=== PATIENT | female | born 1940 | race Caucasian/White ===

== ENCOUNTER 2019-06-16 13:46 | Emergency (ER) | payer MEDICARE, BC ==
[~2019-06-16] VITALS: Ht 157.5 cm; Wt 64.9 kg
[~2019-06-16 13:46] MED LIST: PHEN-705 PO
[2019-06-16 14:05] VITALS: BP 202/113
--- NOTE | 2019-06-16 14:21 | NUR ---
DR BUNN AT BEDSIDE FOR EVAL.
[2019-06-16] MEDS ORDERED: ACETAMINOPHEN ES 500 MG TABLET ONE (14:27)
--- NOTE | 2019-06-16 14:29 | NUR ---
RADIOLOGY AT BEDSIDE FOR L KNEE XRAY.
[2019-06-16] MEDS ORDERED: ACETAMINOPHEN ES 500 MG TABLET PO ONE (14:30)
== END 2019-06-16 15:22 | disposition home or self-care (01) ==
LOC: ER 13:55
DX: S86.812A Strain of other muscle(s) and tendon(s) at lower leg level, left leg, initial encounter (principal); Z60.2 Problems related to living alone; W18.39XA Other fall on same level, initial encounter; Y93.89 Activity, other specified; Y92.89 Other specified places as the place of occurrence of the external cause; Y99.8 Other external cause status
CPT/HCPCS: 73564-TC

== ENCOUNTER 2019-08-05 09:55 | Outpatient (CLI) | payer MEDICARE, BC | END 2019-08-05 23:59 | disposition home or self-care (01) | LOC: CARD 09:55 | PROVIDERS: ATTEND Internal Medicine Interventional Cardiology | DX: M51.36 Other intervertebral disc degeneration, lumbar region (principal); M48.07 Spinal stenosis, lumbosacral region; M43.17 Spondylolisthesis, lumbosacral region; E88.2 Lipomatosis, not elsewhere classified; M41.86 Other forms of scoliosis, lumbar region; M12.88 Other specific arthropathies, not elsewhere classified, other specified site; M89.38 Hypertrophy of bone, other site; I70.292 Other atherosclerosis of native arteries of extremities, left leg | CPT/HCPCS: 72131-TC ==

== ENCOUNTER 2021-08-13 10:03 | Outpatient (CLI) | payer MEDICARE, BC ==
[2021-08-13 11:49] LABS: BASOPHILS % (AUTO) 0.7 % (0.0-2.0); EOSINOPHILS % (AUTO) 1.3 % (0.0-6.0); LYMPHOCYTES # (AUTO) 0.8 K/uL (0.8-4.8); LYMPHOCYTES % (AUTO) 13.5 % (20.0-44.0); MEAN CORPUSCULAR HGB CONC 33 g/dl (31.0-36.0); MEAN CORPUSCULAR VOLUME 98 fL (82-100); MONOCYTES # (AUTO) 0.6 K/uL (0.1-1.30); NEUTROPHILS # (AUTO) 4.3 K/uL (1.8-8.9); NEUTROPHILS % (AUTO) 73.5 % (43.0-81.0); PLATELET COUNT (AUTO) 275 K/uL (150-450); WHITE BLOOD COUNT (AUTO) 5.8 K/uL (4.3-11.0)
[2021-08-13 12:47] LABS: RED BLOOD CELL COUNT(AUTO) 1.94 MIL/uL (4.0-5.2)
[2021-08-13 12:48] LABS: HEMATOCRIT 19 % (33-45); HEMOGLOBIN 6.4 g/dL (11.5-14.8)
[2021-08-13 14:46] LABS: EOSINOPHILS % (MANUAL) 2 % (0-4); LYMPHOCYTES % (MANUAL) 15 % (16-48); MONOCYTES % (MANUAL) 8 % (0-11.0); NEUTROPHILS % (MANUAL) 75 (42-76)
== END 2021-08-13 23:59 | disposition home or self-care (01) ==
LOC: LAB 10:03
PROVIDERS: ATTEND Legal Medicine
DX: D64.9 Anemia, unspecified (principal)
CPT/HCPCS: 36415; 85025-TC

== ENCOUNTER 2021-08-20 15:11 | Outpatient (CLI) | payer MEDICARE, BC ==
[2021-08-20 15:48] LABS: BASOPHILS % (AUTO) 0.6 % (0.0-2.0); EOSINOPHILS % (AUTO) 1.4 % (0.0-6.0); HEMATOCRIT 31 % (33-45); HEMOGLOBIN 10.4 g/dL (11.5-14.8); LYMPHOCYTES % (AUTO) 19.3 % (20.0-44.0); MEAN CORPUSCULAR HGB CONC 34 g/dl (31.0-36.0); MEAN CORPUSCULAR VOLUME 96 fL (82-100); MONOCYTES # (AUTO) 0.5 K/uL (0.1-1.30); MONOCYTES % (AUTO) 8.8 % (2.0-12.0); NEUTROPHILS # (AUTO) 3.7 K/uL (1.8-8.9); NEUTROPHILS % (AUTO) 69.9 % (43.0-81.0); PLATELET COUNT (AUTO) 341 K/uL (150-450); RED BLOOD CELL COUNT(AUTO) 3.24 MIL/uL (4.0-5.2); WHITE BLOOD COUNT (AUTO) 5.2 K/uL (4.3-11.0)
== END 2021-08-20 23:59 | disposition home or self-care (01) ==
LOC: LAB 15:11
PROVIDERS: ATTEND Legal Medicine
DX: D64.9 Anemia, unspecified (principal)
CPT/HCPCS: 36415; 85025-TC

== ENCOUNTER 2021-09-02 11:47 | Outpatient (CLI) | payer MEDICARE, BC ==
[2021-09-02 12:28] LABS: BASOPHILS # (AUTO) 0.1 K/uL (0.0-0.2); BASOPHILS % (AUTO) 0.9 % (0.0-2.0); EOSINOPHILS % (AUTO) 1.3 % (0.0-6.0); HEMATOCRIT 34 % (33-45); HEMOGLOBIN 11.5 g/dL (11.5-14.8); LYMPHOCYTES # (AUTO) 1.3 K/uL (0.8-4.8); LYMPHOCYTES % (AUTO) 21.4 % (20.0-44.0); MEAN CORPUSCULAR HGB CONC 34 g/dl (31.0-36.0); MEAN CORPUSCULAR VOLUME 96 fL (82-100); MONOCYTES # (AUTO) 0.4 K/uL (0.1-1.30); MONOCYTES % (AUTO) 5.9 % (2.0-12.0); NEUTROPHILS # (AUTO) 4.4 K/uL (1.8-8.9); NEUTROPHILS % (AUTO) 70.5 % (43.0-81.0); PLATELET COUNT (AUTO) 244 K/uL (150-450); RED BLOOD CELL COUNT(AUTO) 3.59 MIL/uL (4.0-5.2); WHITE BLOOD COUNT (AUTO) 6.2 K/uL (4.3-11.0)
== END 2021-09-02 23:59 | disposition home or self-care (01) ==
LOC: LAB 11:47
PROVIDERS: ATTEND Legal Medicine
DX: D64.9 Anemia, unspecified (principal)
CPT/HCPCS: 36415; 85025-TC

== ENCOUNTER 2021-10-26 14:56 | Emergency (ER) | payer MEDICARE, BC ==
[~2021-10-26] VITALS: Ht 157.5 cm; Wt 62.1 kg
[2021-10-26 15:52] VITALS: BP 159/76
--- NOTE | 2021-10-26 16:13 | NUR ---
PATIENT LEFT CONTACT #[phone]
--- NOTE | 2021-10-26 16:15 | NUR ---
PT SWABBED FOR COVID. SENT TO LAB.
--- NOTE | 2021-10-26 16:44 | NUR ---
VERBALLY DISCHARGED. STABLE VITALS.
== END 2021-10-26 16:46 | disposition home or self-care (01) ==
LOC: ER 14:58
DX: R05.9 Cough, unspecified (principal); Z20.822 Contact with and (suspected) exposure to COVID-19
CPT/HCPCS: C9803

== ENCOUNTER 2024-12-28 11:09 | Day surgery (SDC) | payer MEDICARE, BC ==
[2024-12-28 11:52] LABS: HEMATOCRIT 30 % (33-45); HEMOGLOBIN 10.2 g/dL (11.5-14.8); LYMPHOCYTES # (AUTO) 0.3 K/uL (0.8-4.8); LYMPHOCYTES % (AUTO) 3.7 % (20.0-44.0); MEAN CORPUSCULAR HEMOGLOBIN 33 PG (26.0-33.0); MEAN CORPUSCULAR HGB CONC 34 g/dl (31.0-36.0); MEAN CORPUSCULAR VOLUME 98 fL (82-100); MONOCYTES # (AUTO) 0.4 K/uL (0.1-1.30); MONOCYTES % (AUTO) 5.2 % (2.0-12.0); NEUTROPHILS # (AUTO) 7.3 K/uL (1.8-8.9); NEUTROPHILS % (AUTO) 91.1 % (43.0-81.0); PLATELET COUNT (AUTO) 191 K/uL (150-450); RED BLOOD CELL COUNT(AUTO) 3.05 MIL/uL (4.0-5.2); RED CELL DISTRIBUTION WIDTH 14.4 % (11.5-15.0)
[2024-12-28 12:07] LABS: ALBUMIN 3.1 g/dL (3.4-5.0); BILIRUBIN,TOTAL 1.3 mg/dL (0.2-1.0); CALCIUM, SERUM 8.1 mg/dL (8.5-10.1); CREATININE 5.4 mg/dL (0.6-1.3); TOTAL PROTEIN, SERUM 6.8 g/dL (6.4-8.2)
[2024-12-28 12:14] LABS: THYROID STIMULATING HORMONE 1.19 uIU/mL (0.358-3.74)
[2024-12-28] MEDS ORDERED: ETOMIDATE 2 MG/ML VIAL ONE (12:51)
[2024-12-28 14:28] VITALS: BP 100/56; O2SAT 100
[2024-12-28] MEDS: AMIODARONE HCL 200 MG TABLET PO ONE (14:28)
== END 2024-12-28 23:59 | disposition home or self-care (01) ==
LOC: DS 11:09 → UNDOADMIN 13:56 → ICU 13:56 → UNDODISIN 17:00 → DS 23:59
PROVIDERS: ATTEND Internal Medicine Interventional Cardiology
DX: I48.0 Paroxysmal atrial fibrillation (principal); I10 Essential (primary) hypertension; E78.5 Hyperlipidemia, unspecified; Z87.440 Personal history of urinary (tract) infections; Z79.899 Other long term (current) drug therapy
CPT/HCPCS: 92960; 93312; 93005 ×2; 85025; 36415; 84439; 84443; 80053; J7030 ×2; J3490; A4223; G0378